=== PATIENT | female | born 1965 | race Asian ===

== ENCOUNTER 2018-11-27 11:27 | Emergency (ER) | payer OTHER ==
[~2018-11-27] VITALS: Ht 154.9 cm; Wt 49.9 kg
[2018-11-27 11:29] VITALS: BP 117/77
[2018-11-27] MEDS ORDERED: NEOMYCIN/POLYMYXIN/BACITRACIN 0.9 GM/1 PKT TP ONE (12:05)
[2018-11-27] MEDS ORDERED: LEVOFLOXACIN 500 MG TAB PO ONE (12:05)
[2018-11-27] MEDS ORDERED: cefTRIAXone 1,000 MG in LIDOCAINE 1% ***ER ONLY *** 2.1 ML IM ONE (12:05)
[2018-11-27] MEDS ORDERED: cefTRIAXone 1,000 MG VIAL ONE (12:30)
--- NOTE | 2018-11-27 12:30 | NUR ---
C/O ABRASION WOUND RIGHT THIGH & TRICIA FOOT S/P DOG BITE X TODAY. PATIENT 'S DOG, LAST VACCINATED OCTOBER 2017 . PATIENT LAST TDAP 3 YEARS AGO. MED HX:DENIES
[2018-11-27] MEDS ORDERED: LIDOCAINE MPF 1% - 5 mL VIAL 5 ML ONE (12:32)
[2018-11-27 13:32] VITALS: BP 117/77
--- NOTE | 2018-11-27 13:33 | NUR ---
Patient discharged with v/s stable. Written and verbal after care instructions given and explained. Patient alert, oriented and verbalized understanding of instructions. Ambulatory with steady gait. All questions addressed prior to discharge. ID band removed. Patient advised to follow up with PMD. Rx of Levaquin, Motrin, and Bactroban topical cream given. Patient educated on indication of medication including possible reaction and side effects. Opportunity to ask questions provided and answered.
== END 2018-11-27 13:33 | disposition home or self-care (01) ==
LOC: MED 11:27
DX: S71.151A Open bite, right thigh, initial encounter (principal); S91.351A Open bite, right foot, initial encounter; S91.051A Open bite, right ankle, initial encounter; W54.0XXA Bitten by dog, initial encounter; Y93.F1 Activity, caregiving, bathing; Y92.89 Other specified places as the place of occurrence of the external cause; Y99.8 Other external cause status
CPT/HCPCS: 12001; 96372; 99283; J0696; J2001